=== PATIENT | male | born 1950 | race Caucasian/White ===

== ENCOUNTER → 2020-02-09 | Outpatient (CLI) | payer BC, OTHER ==
[~2020-02-09] VITALS: Ht 180.3 cm; Wt 92.1 kg
[~2020-02-09] MED LIST: CHILDREN'S ASPI81 M1 PO; DEPAKOTE ER500 M1 PO; FAMOTIDINE 40 M40 M1 PO; HYDROCODON-ACE1 EAC5 PO; LEXAPRO 10 MG T10 M1 PO; LISINOPRIL40 MG PO; METFORMIN HCL500 M3 PO; NORCO 10-325 T1 EACH PO; NORVASC 2.5 MG2.5 M1 PO; PLAVIX 75 MG TA75 MG PO; PROSCAR 5MG TABL5 MG PO; RIVASTIGMINE4.5 MG PO; ROSUVASTATIN CA20 MG PO; TRAZODONE 150150 M1 PO; VITAMIN B12-FO1 EAC1 PO; VITAMIN D3 COM1 EACH PO
--- NOTE | ~2020-02-09 | HPC ---
[facility] [place] [address] PAIN MANAGEMENT CONSULTATION Name: ALOK WELDON Room #: REG NORBERTOWm Luna.#: [id number] Admission: 02/09/20 Attend Phys: Matt Barton MD Discharge: Date of : 54 Report #: [id number] THIS REPORT FOR: cc: Mario Modi MD, Bernard O. MD Morgan, Richard L. MD ~ CC: MARIO Trujillora MD Matt Barton DATE OF SERVICE: 02/09/2020 CHIEF COMPLAINT: Low back pain radiating into the legs and neck pain, which also radiates into the upper extremity, right worse than left. The patient is here today with his . She answers many of my questions. It was noted that he has vascular dementia. He is pleasant and accepting of this arrangement. He answered some questions himself. He is here today because of chronic pain. This has been ongoing for a number of years. He has been treated mostly with medication, low dose hydrocodone taken on a fairly strict scheduled as his provides his medications for him. He reports benefit from the pain medication as does his . He tends to complain all day long of a continuous, steady, shooting, cramping, aching sensation. His pain drawing shows mostly in his low back radiating down the posterolateral aspect of legs into the calves. Secondary pain is in his neck, which radiates into his arms with a description of pins and needles sensations and burning, stabbing and numbness in the hands consistent with radiculopathy. He has seen Dr. Debra Lentz, but I am not previewed to that dictation. Dr. Modi is now a new physician for the patient. He was previously seen and treated by Dr. Tejeda who wrote for his hydrocodone. Dr. Modi contacted me and asked if I would be willing to provide the opioid medication for him under terms of our written agreement program and he is here today to discuss that as well as other options for treatment for his back pain and radiculopathy. CURRENT MEDICATIONS: Metformin, amlodipine, finasteride, lisinopril, Plavix, famotidine, divalproex, escitalopram, rosuvastatin, rivastigmine, hydrocodone 10/325 noted as 3 tablets per day; however, the prescription drug monitoring program information that we have available reveals that he has been receiving 60 tablets a month from Dr. Tejeda and that his last prescription filled was in September. Trazodone as needed for sleep, aspirin 81 mg, vitamin D, vitamin B12. ALLERGIES: PENICILLIN. PAST MEDICAL HISTORY: Remarkable for diabetes, controlled [place] [address] PAIN MANAGEMENT CONSULTATION Name: ALOK WELDON Room #: REG VÍCTOR Ledezma#: [id number] Admission: 02/09/20 Attend Phys: Matt Barton MD Discharge: Date of : 54 Report #: [id number] A1c is in the 5-6 range. He has had some seizure-like activity that dates back to 2008. He has been followed by a neurologist. He has had two suspected seizures within the last several months one that he was after admitted to [facility] and placed in the intensive care unit for. I am quite curious about this admission. His reports that they were carefully watching him, but this was during the time of COVID, so there may be more to that. Records may be coming. He has a history of asthma, hypertension and coronary artery disease with a stent placed in 2008. He remains on Plavix. Dr. Danny Leal is his manager creative. There is a history of gastroesophageal reflux disease, vascular dementia and memory issues, degenerative osteoarthritis and then chronic back pain. 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 He quit working in 2009. REVIEW OF SYSTEMS: Positive for headaches, blurred vision, dizziness, lightheadedness, change in appetite, shortness of breath, dyspnea on exertion, memory loss, nervousness, confusion and insomnia. PHYSICAL EXAMINATION: GENERAL: He is a nice gentleman well, wearing masks. Our physical exam was mostly motion and musculoskeletal. Moved independently from sitting to standing position. His gait was broad-based and stable. He walks slightly bent over at the waist. He has a slight kyphosis of his neck. He has pain and tenderness with the macro rotation, lateral tilt and neck extension. Some pain radiates into his right arm. Examination of the low back reveals no scars. He has some limitations with flexion, which increases pain. Back extension is performed in the normal range with also mild discomfort. Lateral tilt rotational movements increased some pain in the back. I did note straight leg raising discomfort on the right consistent with radiculopathy follows mostly the L5-S1 distribution. He has fallen in the last months, which may be related to medication. He completed an opioid risk tool score is 3, which considered is low risk for addiction. There is a denial of the use of tobacco or alcohol. X-rays are not available, but I do have reports from Dr. Tejeda describes degenerative changes at L4-L5 in the low back, degenerative changes bilateral sacroiliac left worse than right. Hip joints look "pretty good." IMPRESSION: 1. Chronic intractable pain. This is degenerative spondylitic of the cervical and lumbar spine. Radiculopathy is described in both locations. 2. Vascular dementia with memory issues. He is pleasant, seems fairly accepting of this. His is certainly helpful as a caregiver. 3. Seizure disorder. More information to come on this. 4. Hypertension. [facility] [address] [place] [address] PAIN MANAGEMENT CONSULTATION Name: ALOK WELDON Room #: REG VÍCTOR Luna.#: [id number] Admission: 02/09/20 Attend Phys: Matt Barton MD Discharge: Date of : 54 Report #: [id number] 5. Coronary artery disease with history of myocardial infarction in 2008 and stent followed by Dr. Junior Leal. 6. Gastroesophageal reflux disease. 7. Vascular dementia. 8. Degenerative multi-joint osteoarthritis. PLAN: 1. I have no problem with him taking 2 hydrocodone a day, he has done so for years. It does not seem to cause problems. I do not think it is contributing or causing to his memory issues at that dose is currently taken and by report of his . If he uses it during the day keep him active, I think that this is helpful. Constipation should be managed carefully and cautiously. He has had a trial now off of it for some time since his last prescription was provided in September. His has noted no changes in his dementia off of the medicine. We discussed the opioid agreement and importance of safeguarding all medications one prescribing physician, one pharmacy and they will follow those outlined in our agreement. We will continue to see him at 1-2 month intervals until we see that they are using the medications responsibly and I would be willing to extend his prescriptions to every 3 months at a morphine milligram equivalent dose of 20 per day. I believe an epidural steroid injection is worth go here. He has not had one surprisingly and I think given his description of lumbar radicular symptoms, provided enough relief that he could limit his hydrocodone use somewhat. Discussed this in some detail with the patient and his . They would like to schedule that on their followup visit in 1 month. We will talk to Dr. Leal about stopping his Plavix. Followup visit planned in 1 month. Prescription prescribed today for hydrocodone. By: [id number] Matt Barton MD /nt
[2020-02-09 15:01] VITALS: BP 135/86
--- NOTE | 2020-02-09 15:29 | NUR ---
Pain Clinic Assessment: 1. History of Osteoarthritis: BACK History of Rheumatoid Arthritis: 2. Height: 5 ft. 11 in. 180.3 cm. Weight: 203.0 lb. oz. 92.080 kg. Patient's BMI: 28.3 3. Vital Signs: BP: 135/86 Pulse: 74 Resp: 18 Temp: 02 Sat: 99 ECG Mon: 4. Pain Intensity: 10 5. Fall Risk: Dizziness: N Needs help standing or walking: N Fallen in the last 3 months: Y Fall risk comments: FALL ABOUT 01/15/20-STARTED NEW MEDICATION AND HAD DIZZINESS. NO LINGER ON THAT MED. INTOLERANCE TO SEIZURE MEDS 6. Patient on Blood Thinner: None 7. History of Hypertension: Y 8. Opioid Therapy greater than 6 weeks: Y Opiate Contract Signed: 9. Risk Assessment Tool Provided: 3-LOW RISK 10. Functional Assessment Tool: 11. Recreational Drug Use: Never Drug Type: Tobacco Use: Never Smoker Tobacco Type: Amount or Packs/day: How Many Years: Alcohol Use: Frequency: Quant:
== END ==
LOC: PAIN 07:02
DX: M47.812 Spondylosis without myelopathy or radiculopathy, cervical region (principal); M54.5 Low back pain; G89.29 Other chronic pain; M54.9 Dorsalgia, unspecified; F03.90 Unspecified dementia, unspecified severity, without behavioral disturbance, psychotic disturbance, mood disturbance, and anxiety; G40.909 Epilepsy, unspecified, not intractable, without status epilepticus; I10 Essential (primary) hypertension; Z79.899 Other long term (current) drug therapy

== ENCOUNTER → 2020-03-11 | Outpatient (CLI) | payer BC, OTHER ==
[~2020-03-11] VITALS: Ht 180.3 cm; Wt 92.0 kg
[2020-03-11 12:53] VITALS: BP 114/75
--- NOTE | 2020-03-11 13:22 | NUR ---
Pain Clinic Assessment: 1. History of Osteoarthritis: BACK History of Rheumatoid Arthritis: Not Applicable 2. Height: 5 ft. 11 in. 180.3 cm. Weight: 202.8 lb. oz. 91.990 kg. Patient's BMI: 28.3 3. Vital Signs: BP: 114/75 Pulse: 88 Resp: 16 Temp: 02 Sat: 97 ECG Mon: 4. Pain Intensity: 5 5. Fall Risk: Dizziness: N Needs help standing or walking: N Fallen in the last 3 months: N Fall risk comments: FALL ABOUT 01/15/20-STARTED NEW MEDICATION AND HAD DIZZINESS. NO LINGER ON THAT MED. INTOLERANCE TO SEIZURE MEDS 6. Patient on Blood Thinner: None 7. History of Hypertension: Y 8. Opioid Therapy greater than 6 weeks: Y Opiate Contract Signed: 9. Risk Assessment Tool Provided: 3-LOW RISK 10. Functional Assessment Tool: 11. Recreational Drug Use: Past greater than 3 mos Drug Type: MARIUJUANA Tobacco Use: Never Smoker Tobacco Type: Amount or Packs/day: How Many Years: Alcohol Use: No Frequency: Quant:
--- NOTE | 2020-03-19 15:51 | HPC ---
[facility] [place] [address] [place] [address] PAIN MANAGEMENT CONSULTATION Name: ALOK WELDON Room #: REG VÍCTOR Jeremy.#: [id number] Admission: 03/11/20 Attend Phys: Matt Barton MD Discharge: Date of : 54 Report #: [id number] THIS REPORT FOR: cc: Chester Modi MD, Bernard O. MD Morgan,Matt Rivera MD ~ CC: Chester Barton DATE OF SERVICE: 03/11/2020 Followup visit for lumbar radiculopathy. This is a patient we have been seeing over the last month at the request of Dr. Chester Modi for chronic pain. He has pain in his low back and radiates into both legs. He also complains of neck pain. He has been taking hydrocodone at low dose. His maximum MME has been 20. At times, he has used less than 2 tablets of hydrocodone 10/325 per day. His helps keep an eye on his medication for him. He is here today because he has ongoing persistent pain consistent with an L5-S1 radiculopathy. There are some degenerative changes at L4-L5. We discussed use of an injection to provide pain relief and keep him off of other medications. A lengthy discussion ensued today about marijuana, which is now medicinal in the state of [place]. He has been seen by a neurologist who has recommended against the use of marijuana because of seizures that appear to be occurring after he has used marijuana. He has taken it both recreationally in the past and feels that it may have some pain relieving benefits for him, but we have urged him to stay away from marijuana in any form due to the potential for seizures. PQRS: Positive for spondylosis. His BMI is 28.3, his blood pressure 114/75, heart rate 88, respirations 16, O2 sat 97, pain intensity is 5/10. He has a history of Plavix use and was discontinued in anticipation of an epidural injection today. He did fall back in December, but has not fallen since we feel it was due to new medicines, which have been discontinued. He signed an opioid agreement with our group at Dr. Modi's request 1 month ago. His risk assessment tool is low for addiction and his , of course, monitors his medication carefully. He does not have the ability to increase his dose or use it compulsively. He has denied the use of all recreational drugs other than marijuana in the past. Denies use of tobacco, denies use of alcohol. IMPRESSION: Low back pain with radiculopathy. Chronic cervicalgia with spondylosis. [address] [address] PAIN MANAGEMENT CONSULTATION Name: ALOK WELDON Room #: REG VÍCTOR Ledezma#: [id number] Admission: 03/11/20 Attend Phys: Matt Barton MD Discharge: Date of : 54 Report #: [id number] RECOMMENDATION: Today, he is here for a trial of an epidural injection to see if it can provide relief. I think it will be great if we can reduce his medicine as a result of better pain relief from the injection. Potential benefits and risks have been discussed. He would like to proceed. PROCEDURE: He was taken to fluoroscopic suite for treatment, placed prone, skin prepped with ChloraPrep. Skin anesthetized with 1% lidocaine. A 20-gauge Tuohy epidural needle was advanced in the epidural space with loss of resistance technique. There was no blood or CSF aspirated. A 1 mL of Omnipaque injected. Good spread of dye observed into the epidural space. This was followed by 3 mL of 0.5% lidocaine mixed with 80 mg of triamcinolone. He tolerated the procedure well. There were no complications. He was taken to the recovery room and observed for about 45 minutes and discharged. Followup visit planned as needed in 3 months for renewal of medication. Injection may be a part of that visit as well. <ELECTRONICALLY SIGNED> By: Matt Barton MD 03/19/20 [id number] Matt Barton MD /nt
== END | disposition home or self-care (01) ==
LOC: PAIN 08:18
PROVIDERS: ATTEND Anesthesiology Pain Medicine
DX: M54.16 Radiculopathy, lumbar region (principal); G89.29 Other chronic pain; M54.2 Cervicalgia; M47.892 Other spondylosis, cervical region; Z98.890 Other specified postprocedural states; Z79.899 Other long term (current) drug therapy

== ENCOUNTER 2020-06-06 18:35 | Emergency (ER) | payer BC, OTHER ==
[~2020-06-06] VITALS: Ht 182.9 cm; Wt 93.0 kg
[2020-06-06 20:00] VITALS: BP 136/78
== END 2020-06-06 20:00 | disposition home or self-care (01) ==
LOC: ER 18:35
DX: L02.11 Cutaneous abscess of neck (principal); Z95.0 Presence of cardiac pacemaker; Z79.82 Long term (current) use of aspirin; Z79.899 Other long term (current) drug therapy; Z88.0 Allergy status to penicillin; Z88.8 Allergy status to other drugs, medicaments and biological substances

== ENCOUNTER → 2020-06-15 | Outpatient (CLI) | payer BC, OTHER ==
[~2020-06-15] VITALS: Ht 180.3 cm; Wt 96.2 kg
[~2020-06-15] MED LIST changes: +DOXYCYCLINE 10100 MG PO
[2020-06-15 08:30] VITALS: BP 149/83
--- NOTE | 2020-06-15 08:40 | NUR ---
Pain Clinic Assessment: 1. History of Osteoarthritis: BACK NECK History of Rheumatoid Arthritis: Not Applicable 2. Height: 5 ft. 11 in. 180.3 cm. Weight: 212.0 lb. oz. 96.163 kg. Patient's BMI: 29.6 3. Vital Signs: BP: 149/83 Pulse: 95 Resp: 16 Temp: 02 Sat: 99 ECG Mon: 4. Pain Intensity: 6-7 5. Fall Risk: Dizziness: N Needs help standing or walking: N Fallen in the last 3 months: N Fall risk comments: FALL ABOUT 01/15/20-STARTED NEW MEDICATION AND HAD DIZZINESS. NO LINGER ON THAT MED. INTOLERANCE TO SEIZURE MEDS 6. Patient on Blood Thinner: None 7. History of Hypertension: Y 8. Opioid Therapy greater than 6 weeks: Y Opiate Contract Signed: 9. Risk Assessment Tool Provided: 3-LOW RISK 10. Functional Assessment Tool: 11. Recreational Drug Use: Past greater than 3 mos Drug Type: Tobacco Use: Never Smoker Tobacco Type: Amount or Packs/day: How Many Years: Alcohol Use: No Frequency: Quant:
--- NOTE | 2020-06-16 09:12 | HPC ---
[facility] [address] [place] [address] PAIN MANAGEMENT CONSULTATION Name: ALOK WELDON Room #: REG [facility] [place]#: [id number] Admission: 06/15/20 Attend Phys: Sybil Duarte Discharge: Date of : 54 Report #: [id number] THIS REPORT FOR: cc: Chester Modi MD, Bernard O. MD Hocker, Amanda CNS ~ CC: Matt Barton MD DATE OF SERVICE: 06/15/2020 CHIEF COMPLAINT: Lumbar radiculopathy. HISTORY OF PRESENT ILLNESS: As you know, this is a 69-year-old gentleman who continues to complain of low back pain that radiates into his bilateral legs. Today, he is also reporting some neck issues that radiate into his right arm. He reports that it is a muscle spasm that he is experiencing per his 's report, she believes that has to do with some Levaquin that he recently had while in the hospital earlier this year and affected a tendon that has been problematic for most of the summer. Today, the patient is reporting a pain score of 6-7 and aching pain in his lower back, worse with prolonged standing and walking. He feels the medication as well as repositioning and heat have been beneficial. He does suffer from dementia and his takes care of all of his medications for him. The patient has recently been to the [facility] for sebaceous cyst on his neck. It was incised and she was packing it. Then, he experienced some difficulty with his speech and she took him to [facility] where he did spend the night for a possible stroke. They ruled that out, believing that his issues were related to his infection and he is now currently on doxycycline. His sebaceous cyst is healed and closed with no redness currently. ALLERGIES: BENADRYL, PENICILLIN. CURRENT LIST OF MEDICATIONS: Doxycycline, hydrocodone 10/325 b.i.d., vitamin B12, vitamin D3, aspirin, Desyrel, rivastigmine, Crestor, Depakote, Pepcid, Zestril, Proscar, Norvasc, metformin. PQRS: 1. He has a history of osteoarthritis in his back and neck. He denies any rheumatoid arthritis. 2. Height is 5 feet 11 inches, weight is 212, BMI is 29. 3. Vital signs, blood pressure 149/83, pulse is 95, respirations 16, oxygen sat is 99. 4. Pain score is 6-7. 5. Fall risk. Denies dizziness. Does not need assistance with walking, [place] [address] PAIN MANAGEMENT CONSULTATION Name: ALOK WELDON Room #: REG [facility] FranciscoCharles#: [id number] Admission: 06/15/20 Attend Phys: Sybil Duarte Discharge: Date of : 54 Report #: [id number] not fallen in the last 3 months. 6. The patient is not on any blood thinners, but does have a history of hypertension. 7. His opioid therapy is greater than 6 weeks; therefore, an opioid signed contract is on the chart. Risk assessment is low. Functional assessment is 50. 8. No recreational drug use in the past. He is not a smoker and does not drink alcohol. According to the prescription monitoring system, the patient is filling in a timely fashion. His morphine milliequivalent is 20 MME per day. PHYSICAL EXAMINATION: GENERAL: This is alert and orientated 69-year-old gentleman who is answering questions appropriately, though, sitting quiet through some of our conversation today, rating his pain score at 6-7. HEENT: Normocephalic, atraumatic. Extraocular eye muscles are intact. He is wearing a mask. MUSCULOSKELETAL: He has slight kyphosis of his neck. He has tenderness in his scapular region with trigger points noted. He does have a well-healed sebaceous gland that is without redness today. His lower back reveals no scars. He has limitation in his flexion and extension increases slight discomfort. Straight leg raising is positive. Lower extremity strength is symmetrical at 5/5. IMPRESSION: 1. Chronic intractable pain. 2. Lumbar radiculopathy following the L5-S1 dermatomal distribution. 3. Vascular dementia. 4. Seizure disorder. 5. Hypertension. 6. Cervicalgia with spondylosis. We reviewed the fact that opiate medications are being used to provide analgesia adequate to support activities of daily living, not attempting to achieve a specific pain score on the 0-10 Visual Analog Scale. The current opiate medications are providing sufficient analgesia to allow the patient to participate in activities of daily living. The patient is not exhibiting any aberrant behavior suggestive of drug diversion. The patient is not having any adverse reactions to medications. The patient is not suffering from daytime somnolence or mental acuity changes. The patient is managing opiate-induced constipation with appropriate utwl-xmb-vwrolco agents and dietary considerations. The patient was counseled on concern for caution with operating a motor vehicle while using opiate medications. PLAN: 1. We discussed treatment options with the patient today. The patient finds the medication beneficial in helping control most of his pain. We will continue [address] [place] [address] PAIN MANAGEMENT CONSULTATION Name: ALOK WELDON Room #: YAMILA Ledezma#: [id number] Admission: 06/15/20 Attend Phys: Sybil Duarte Discharge: Date of : 54 Report #: [id number] his hydrocodone b.i.d., quantity 60 for today,4-week an 8-week supply. These will be sent electronically by Dr. Matt Barton. 2. We did discuss constipation issues. The patient does feel that at times he does have some issues and especially though his does verify this, she tries to keep on top. On top of the situation, we did discuss MiraLax to be taken every day or every other day depending on his need. He is currently on antibiotics. This may help with constipation currently, but after he has finished, to possibly start the MiraLax. 3. The patient is seen today in collaboration with Dr. Matt Barton. The patient will return in 3 months. <ELECTRONICALLY SIGNED> By: Sybil Duarte 06/16/20911 1014 Sybil Duarte /hal
== END ==
LOC: PAIN 06-11 06:52
PROVIDERS: ATTEND Clinical Nurse Specialist Adult Health
DX: M54.16 Radiculopathy, lumbar region (principal); G89.29 Other chronic pain; M47.812 Spondylosis without myelopathy or radiculopathy, cervical region; I10 Essential (primary) hypertension; G40.909 Epilepsy, unspecified, not intractable, without status epilepticus; F01.50 Vascular dementia, unspecified severity, without behavioral disturbance, psychotic disturbance, mood disturbance, and anxiety; Z88.8 Allergy status to other drugs, medicaments and biological substances; Z79.899 Other long term (current) drug therapy

== ENCOUNTER → 2020-07-29 | Outpatient (CLI) | payer BC, OTHER ==
[~2020-07-29] VITALS: Ht 180.3 cm; Wt 94.7 kg
[2020-07-29 14:18] VITALS: BP 120/82
--- NOTE | 2020-07-29 14:26 | NUR ---
Pain Clinic Assessment: 1. History of Osteoarthritis: BACK NECK SHOULDER-RIGHT History of Rheumatoid Arthritis: Not Applicable 2. Height: 5 ft. 11 in. 180.3 cm. Weight: 208.8 lb. oz. 94.711 kg. Patient's BMI: 29.1 3. Vital Signs: BP: 120/82 Pulse: 83 Resp: 18 Temp: 02 Sat: 98 ECG Mon: 4. Pain Intensity: 8 5. Fall Risk: Dizziness: N Needs help standing or walking: N Fallen in the last 3 months: Y Fall risk comments: FALL ABOUT 01/15/20-STARTED NEW MEDICATION AND HAD DIZZINESS. NO LINGER ON THAT MED. INTOLERANCE TO SEIZURE MEDS 6. Patient on Blood Thinner: None 7. History of Hypertension: Y 8. Opioid Therapy greater than 6 weeks: Y Opiate Contract Signed: 9. Risk Assessment Tool Provided: 3-LOW RISK 10. Functional Assessment Tool: 11. Recreational Drug Use: Past greater than 3 mos Drug Type: Tobacco Use: Never Smoker Tobacco Type: Amount or Packs/day: How Many Years: Alcohol Use: No Frequency: Quant:
== END | disposition home or self-care (01) ==
LOC: PAIN 06:57
PROVIDERS: ATTEND Anesthesiology Pain Medicine
DX: M54.16 Radiculopathy, lumbar region (principal); G89.29 Other chronic pain; I10 Essential (primary) hypertension; J45.909 Unspecified asthma, uncomplicated; Z98.890 Other specified postprocedural states; Z79.899 Other long term (current) drug therapy; Z88.0 Allergy status to penicillin; Z88.8 Allergy status to other drugs, medicaments and biological substances

== ENCOUNTER → 2020-10-18 | Outpatient (CLI) | payer OTHER ==
[~2020-10-18] VITALS: Ht 180.3 cm; Wt 95.3 kg
[2020-10-18 08:58] VITALS: BP 136/79
--- NOTE | 2020-10-18 09:12 | NUR ---
Pain Clinic Assessment: 1. History of Osteoarthritis: BACK NECK SHOULDER-RIGHT History of Rheumatoid Arthritis: Not Applicable 2. Height: 5 ft. 11 in. 180.3 cm. Weight: 210.2 lb. oz. 95.346 kg. Patient's BMI: 29.3 3. Vital Signs: BP: 136/79 Pulse: 84 Resp: 16 Temp: 02 Sat: 96 ECG Mon: 4. Pain Intensity: 5 5. Fall Risk: Dizziness: N Needs help standing or walking: N Fallen in the last 3 months: Y Fall risk comments: FALL ABOUT 01/15/20-STARTED NEW MEDICATION AND HAD DIZZINESS. NO LINGER ON THAT MED. INTOLERANCE TO SEIZURE MEDS 6. Patient on Blood Thinner: None 7. History of Hypertension: Y 8. Opioid Therapy greater than 6 weeks: Y Opiate Contract Signed: 9. Risk Assessment Tool Provided: 3-LOW RISK 10. Functional Assessment Tool: 11. Recreational Drug Use: Past greater than 3 mos Drug Type: Tobacco Use: Never Smoker Tobacco Type: Amount or Packs/day: How Many Years: Alcohol Use: No Frequency: Quant:
== END | disposition home or self-care (01) ==
LOC: PAIN 06:45
PROVIDERS: ATTEND Anesthesiology Pain Medicine
DX: M54.16 Radiculopathy, lumbar region (principal); G89.29 Other chronic pain; I10 Essential (primary) hypertension; M19.90 Unspecified osteoarthritis, unspecified site; Z98.890 Other specified postprocedural states; Z79.899 Other long term (current) drug therapy; Z88.0 Allergy status to penicillin; Z88.8 Allergy status to other drugs, medicaments and biological substances

== ENCOUNTER → 2020-12-20 | Outpatient (CLI) | payer OTHER ==
[~2020-12-20] MED LIST changes: +DERMACINRX5000 UNI1 PO; +LEXAPRO 10 MG T10 M2 PO; +NORVASC5 MG PO; +RIVASTIGMINE1 EACH TOP; +TAMSULOSIN HCL0.4 MG PO; +TRAZODONE HCL50 MG PO; +VITAMIN B-121000 MC2 SUBLING
== END ==
LOC: LAB 13:09
PROVIDERS: ATTEND Ophthalmology
DX: Z01.812 Encounter for preprocedural laboratory examination (principal); Z20.822 Contact with and (suspected) exposure to COVID-19

== ENCOUNTER → 2020-12-23 | Day surgery (SDC) | payer OTHER ==
[~2020-12-23] VITALS: Ht 180.3 cm; Wt 96.6 kg
[2020-12-23 08:30] VITALS: BP 121/76
--- NOTE | 2020-12-27 06:16 | O ---
[facility] [place] [address] OPERATIVE REPORT Name: SHIRAZQUENTIN Braden Room #: [facility].#: [id number] Admission: 12/23/20 Attend Phys: Quentin Dobson MD Discharge: Date of : 54 Report #: [id number] THIS REPORT FOR: cc: Abdulkadir Guthrie MD, Michael D. MD White, William L. MD ~ DATE OF SERVICE: 12/23/2020 PREOPERATIVE DIAGNOSIS: Multiple left upper lid tarsoconjunctival tumors. POSTOPERATIVE DIAGNOSIS: Multiple left upper lid tarsoconjunctival tumors. PROCEDURES: Excision of multiple left upper lid conjunctival lesions with conjunctivoplasty repair of defect. SURGEON: Quentin Dobson MD [employer] POLICE: None. ANESTHESIA: General. COMPLICATIONS: None. 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 He presents today for excision of these lesions with repair of defect in order to attempt to determine the underlying histopathologic nature of this process. It is thought to potentially be neoplastic, but could be infectious. Informed consent was obtained to include but not limited to the potential risk for loss of vision, bleeding, infection, and almost certain need for further treatment. DESCRIPTION OF PROCEDURE: The patient was taken to the operating room where general anesthesia was administered. The patient was subsequently prepped and draped in the usual sterile fashion. The left upper lid was then everted and the site inspected where the lesions were emanating. A transconjunctival aliquot of 2% Xylocaine with epinephrine mixed with equal parts 0.75% Marcaine with Wydase was administered. Three minutes were given to allow the anesthetic to have some effect for vasoconstriction. The largest lesion appeared to be sessile in nature and on the lateral aspect of the tarsal plate, it was amputated at its base. It was in two separate pieces. 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 Six other lesions were removed from the tarsal plate more nasally and then on the conjunctiva just superior to the tarsal plate itself. The largest lesion [facility] [address] [place] [address] OPERATIVE REPORT Name: QUENTIN WELDON Room #: [facility].#: [id number] Admission: 12/23/20 Attend Phys: Quentin Dobson MD Discharge: Date of : 54 Report #: [id number] temporally in the fornix left a conjunctival defect. Hemostasis was achieved with battery powered cautery throughout the case. The defect laterally was closed by undermine conjunctiva more nasally and rotating it into position to close with a conjunctival plastic closure of 6-0 plain gut suture. The wounds were then cleaned and the eye dressed with copious erythromycin ophthalmic ointment anticipating him to find his eye scratchy after surgery. He was subsequently transported to the recovery area having tolerated the procedures well with no anesthetic or operative complications being noted. <ELECTRONICALLY SIGNED> By: Quentin Dobson MD 12/27/20 0616 0923 [id number] Quentin Dobson MD /nt
--- NOTE | 2020-12-30 16:06 | PATH ---
[facility] [address] [place] [address] PATHOLOGY RPT PROCEDURE Name: QUENTIN POLLARD Room #: [facility] M.R.#: [id number] Admission: 12/23/20 Date of : 54 Discharge: Report #: [id number] Path Case #: [id number] [facility] Accession Number: [id number] . 01 Material submitted: . eye - MULTIPLE LESIONS - LEFT SUPERIOR CONJUNCTIVA. Modifiers: left, superior . 01 Clinical history: . CONJUCTIVAL TUMOR . . 02 Diagnosis: Skin, multiple left superior conjunctival lesions, excision: - Multiple exophytic squamous papilloma fragments. - Focal mild squamous dysplasia identified in a few fragments. - Negative for high-grade squamous intraepithelial lesion. (IUV:pit 12/27/2020) QTP 12/27/2020 1353 Local . 02 Comment: P16 (immunohistochemical stain) as well as HPV JAYME studies are ordered based on Dr. Quentin Dobson's request. The results of these will be reported in an addendum to follow. (IUV:pit 12/27/2020) . . 02 Addendum: . Properly controlled p16 immunohistochemical stain is performed on block A1 and it shows patchy reactivity present. . Properly controlled HPV JAYME is performed on block A1 and they are interpreted as follows: . *HPV6/11 - Nuclear reactivity identified in multiple foci (positive) *HPV16/18 - Non-reactive (negative) *HPV 31/33 - Non-reactive (negative) . The originally rendered diagnosis remains unchanged. (IUV/db; 12/30/2020) . Professional services performed by [facility] at [facility], [facility] [address], [place] [address]. Technical services for p16 performed by [facility] at [address] [place] [address], [address] [address]. . *Professional services performed by [facility] at [facility], [place] [address] [place] [address] PATHOLOGY RPT PROCEDURE Name: QUENTIN POLLARD Room #: [facility] M..#: [id number] Admission: 12/23/20 Date of : 54 Discharge: Report #: [id number] Path Case #: [id number] [address], [place] [address]. Technical services for HPV performed by [facility], [address] [place] [address], [address], [place] [address]. QTP/12/30/2020 Addendum Electronically Signed by Serene Dawkins MD, Pathologist . 02 Electronically signed: . Serene Dawkins MD, Pathologist NPI- [id number] . 01 Gross description: . Received in formalin labeled "Quentin Pollard, multiple lesions left superior conjunctiva" are multiple irregular, acevedo brown fragments of soft tissue measuring in area 2.9 x 1.2 x 0.4 cm. Specimen is entirely submitted in cassette A1.([facility]; 12/24/2020) . GZA/GZA 12/24/2020 1039 Local . 02 Pathologist provided ICD-10: D31.02 . 02 CPT . 351167, L10950, [id number] Specimen Comment: A courtesy copy of this report has been sent to [phone] Specimen Comment: Report sent to Specimen Comment: A duplicate report has been generated due to demographic updates. Performed at: [facility] [address] [place] [address] [address], [place], [place] [id number] MD Jersey Hunter MD Phone: [phone] Performed at: [address] [facility] [id number] MD Serene Dawkins MD Phone: [phone]
== END | disposition home or self-care (01) ==
LOC: OR 06:37
PROVIDERS: ATTEND Ophthalmology
DX: D31.02 Benign neoplasm of left conjunctiva (principal); I10 Essential (primary) hypertension; E11.9 Type 2 diabetes mellitus without complications; I25.2 Old myocardial infarction; F32.9 Major depressive disorder, single episode, unspecified; F41.9 Anxiety disorder, unspecified; K21.9 Gastro-esophageal reflux disease without esophagitis; G47.30 Sleep apnea, unspecified; Z98.890 Other specified postprocedural states; Z79.899 Other long term (current) drug therapy; Z87.891 Personal history of nicotine dependence; Z95.0 Presence of cardiac pacemaker; Z86.73 Personal history of transient ischemic attack (TIA), and cerebral infarction without residual deficits; Z88.0 Allergy status to penicillin; Z88.8 Allergy status to other drugs, medicaments and biological substances
CPT/HCPCS: 50010; 50101; 50386; 50398; 51636; 56531; 62110; 62900; 64037; 70005

== ENCOUNTER → 2021-01-20 | Outpatient (CLI) | payer OTHER ==
[~2021-01-20] VITALS: Ht 180.3 cm; Wt 98.0 kg
[~2021-01-20] MED LIST changes: +HYDROCODON-ACE1 EAC7 PO
[2021-01-20 09:38] VITALS: BP 125/75
--- NOTE | 2021-01-20 09:50 | NUR ---
Pain Clinic Assessment: 1. History of Osteoarthritis: BACK NECK SHOULDER-RIGHT History of Rheumatoid Arthritis: Not Applicable 2. Height: 5 ft. 11 in. 180.3 cm. Weight: 216.0 lb. oz. 97.977 kg. Patient's BMI: 30.1 3. Vital Signs: BP: 125/75 Pulse: 90 Resp: 16 Temp: 02 Sat: 97 ECG Mon: 4. Pain Intensity: unable to state 5. Fall Risk: Dizziness: N Needs help standing or walking: N Fallen in the last 3 months: N Fall risk comments: FALL ABOUT 01/15/20-STARTED NEW MEDICATION AND HAD DIZZINESS. NO LINGER ON THAT MED. INTOLERANCE TO SEIZURE MEDS 6. Patient on Blood Thinner: None 7. History of Hypertension: Y 8. Opioid Therapy greater than 6 weeks: Y Opiate Contract Signed: 9. Risk Assessment Tool Provided: 3-LOW RISK 10. Functional Assessment Tool: 11. Recreational Drug Use: Past greater than 3 mos Drug Type: Tobacco Use: Former Smoker Tobacco Type: Amount or Packs/day: How Many Years: Alcohol Use: Yes Frequency: Quant:
== END ==
LOC: PAIN 07:07
PROVIDERS: ATTEND Clinical Nurse Specialist Adult Health
DX: M54.16 Radiculopathy, lumbar region (principal); G89.29 Other chronic pain; F03.90 Unspecified dementia, unspecified severity, without behavioral disturbance, psychotic disturbance, mood disturbance, and anxiety; Z87.891 Personal history of nicotine dependence; Z79.899 Other long term (current) drug therapy; Z72.89 Other problems related to lifestyle

== ENCOUNTER → 2021-04-18 | Outpatient (CLI) | payer OTHER ==
[~2021-04-18] VITALS: Ht 182.9 cm; Wt 102.4 kg
[~2021-04-18] MED LIST changes: +HYDROCODONE-AP1 EACH PO
[2021-04-18 10:13] VITALS: BP 116/69
--- NOTE | 2021-04-18 10:23 | NUR ---
Pain Clinic Assessment: 1. History of Osteoarthritis: BACK NECK SHOULDER-RIGHT History of Rheumatoid Arthritis: Not Applicable 2. Height: 6 ft. 0 in. 182.9 cm. Weight: 225.8 lb. oz. 102.422 kg. Patient's BMI: 30.6 3. Vital Signs: BP: 116/69 Pulse: 84 Resp: 16 Temp: 02 Sat: 97 ECG Mon: 4. Pain Intensity: 4 5. Fall Risk: Dizziness: N Needs help standing or walking: N Fallen in the last 3 months: N Fall risk comments: FALL ABOUT 01/15/20-STARTED NEW MEDICATION AND HAD DIZZINESS. NO LINGER ON THAT MED. INTOLERANCE TO SEIZURE MEDS 6. Patient on Blood Thinner: None 7. History of Hypertension: Y 8. Opioid Therapy greater than 6 weeks: Y Opiate Contract Signed: 9. Risk Assessment Tool Provided: 3-LOW RISK 10. Functional Assessment Tool: 11. Recreational Drug Use: Past greater than 3 mos Drug Type: Tobacco Use: Former Smoker Tobacco Type: Amount or Packs/day: How Many Years: Alcohol Use: Yes Frequency: Weekly Quant: 1
== END ==
LOC: PAIN 07:11
PROVIDERS: ATTEND Clinical Nurse Specialist Adult Health
DX: M54.16 Radiculopathy, lumbar region (principal); G89.29 Other chronic pain; M19.011 Primary osteoarthritis, right shoulder; M19.012 Primary osteoarthritis, left shoulder; F03.90 Unspecified dementia, unspecified severity, without behavioral disturbance, psychotic disturbance, mood disturbance, and anxiety; Z79.891 Long term (current) use of opiate analgesic; Z79.899 Other long term (current) drug therapy; Z87.891 Personal history of nicotine dependence; Z72.89 Other problems related to lifestyle; Z88.0 Allergy status to penicillin; Z88.1 Allergy status to other antibiotic agents

== ENCOUNTER → 2021-07-11 | Outpatient (CLI) | payer OTHER ==
[~2021-07-11] VITALS: Ht 180.3 cm; Wt 102.9 kg
[2021-07-11 13:09] VITALS: BP 136/82
--- NOTE | 2021-07-11 13:16 | NUR ---
Pain Clinic Assessment: 1. History of Osteoarthritis: BACK NECK SHOULDER-RIGHT History of Rheumatoid Arthritis: Not Applicable 2. Height: 5 ft. 11 in. 180.3 cm. Weight: 226.8 lb. oz. 102.876 kg. Patient's BMI: 31.6 3. Vital Signs: BP: 136/82 Pulse: 91 Resp: 16 Temp: 02 Sat: 96 ECG Mon: 4. Pain Intensity: 5 5. Fall Risk: Dizziness: N Needs help standing or walking: N Fallen in the last 3 months: Y Fall risk comments: FALL ABOUT 01/15/20-STARTED NEW MEDICATION AND HAD DIZZINESS. NO LINGER ON THAT MED. INTOLERANCE TO SEIZURE MEDS 6. Patient on Blood Thinner: None 7. History of Hypertension: Y 8. Opioid Therapy greater than 6 weeks: Y Opiate Contract Signed: 9. Risk Assessment Tool Provided: 3-LOW RISK 10. Functional Assessment Tool: 11. Recreational Drug Use: Past greater than 3 mos Drug Type: Tobacco Use: Former Smoker Tobacco Type: Amount or Packs/day: How Many Years: Alcohol Use: Yes Frequency: Weekly Quant: 1 DRINK EVERY COUPLE OF WEEKS
== END ==
LOC: PAIN 10:45
PROVIDERS: ATTEND Anesthesiology Pain Medicine
DX: G89.29 Other chronic pain (principal); M47.814 Spondylosis without myelopathy or radiculopathy, thoracic region; M47.816 Spondylosis without myelopathy or radiculopathy, lumbar region; M19.012 Primary osteoarthritis, left shoulder; M19.011 Primary osteoarthritis, right shoulder; R53.1 Weakness; Z88.0 Allergy status to penicillin; Z88.8 Allergy status to other drugs, medicaments and biological substances; Z79.82 Long term (current) use of aspirin; Z79.899 Other long term (current) drug therapy

== ENCOUNTER → 2021-10-20 | Outpatient (CLI) | payer OTHER | LOC: TELEPC 10-18 08:11 | PROVIDERS: ATTEND Clinical Nurse Specialist Adult Health | DX: M54.50 Low back pain, unspecified (principal); M47.27 Other spondylosis with radiculopathy, lumbosacral region; A52.17 General paresis; G40.909 Epilepsy, unspecified, not intractable, without status epilepticus; Z79.82 Long term (current) use of aspirin; Z79.899 Other long term (current) drug therapy; Z79.891 Long term (current) use of opiate analgesic; Z88.0 Allergy status to penicillin; Z88.8 Allergy status to other drugs, medicaments and biological substances; M19.011 Primary osteoarthritis, right shoulder; Z87.891 Personal history of nicotine dependence; Z72.89 Other problems related to lifestyle ==